=== PATIENT | male | born 1960 | race Caucasian/White ===

== ENCOUNTER 2022-12-23 09:44 | Outpatient (CLI) | payer BC, SELFPAY ==
--- NOTE | ~2022-12-23 | XR_ITS ---
XR chest 2V DATE: 12/23/2022 10:18 INDICATION: Cough lingering after flu for 4 weeks TECHNIQUE: PA and lateral views COMPARISON: 10/30/2016 2 view chest FINDINGS: No pulmonary infiltrate or consolidation, pleural effusion or pulmonary vascular congestion or pneumothorax. Heart size is within normal range. No hilar or mediastinal enlargement. Status post cholecystectomy. Degenerative spurring of the thoracic spine. IMPRESSION: No active cardiopulmonary disease or significant change since 10/30/2016 Reviewed, dictated and finalized at location A. [employer]
[2022-12-23 09:57] LABS: Basophils Absolute Auto 0.05 K/mm3 (0.00-0.10); Basophils Percent Auto 0.7 % (0.0-1.0); Eosinophils Absolute Auto 0.21 K/mm3 (0.02-0.50); Eosinophils Percent Auto 2.9 % (1.0-6.0); Hematocrit 45.2 % (40.0-54.0); Hemoglobin 15.2 g/dL (14.0-18.0); Immature Granulocyte Absolute 0.02 K/mm3 (0.00-0.00); Immature Granulocyte Percent A 0.3 % (0.0-0.0); Mean Corpuscular HGB Conc 33.6 g/dL (32.0-36.0); Mean Corpuscular Hemoglobin 29.4 pg (27.0-31.0); Mean Corpuscular Volume 87.4 fL (78.0-102.0); Mean Platelet Volume 10.4 fl (8.7-11.0); Monocytes Absolute Auto 0.63 K/mm3 (0.10-0.90); Monocytes Percent Auto 8.8 % (2.0-11.0); Neutrophils Absolute Auto 4.5 K/mm3 (1.7-7.2); Neutrophils Percent Auto 62.3 % (50.0-70.0); Platelet Count Result 253 K/mm3 (150-420); Red Blood Count 5.17 M/mm3 (4.70-6.10); Red Cell Distribution Width 14.4 % (11.6-14.4); White Blood Count 7.2 K/mm3 (4.8-10.8)
[2022-12-23 10:13] LABS: Alanine Aminotransferase 28 U/L (16-63); Albumin Level 3.8 g/dL (3.4-5.0); Alkaline Phosphatase 84 U/L (46-116); Anion Gap 4 mmol/L (8-16); Aspartate Amino Transferase 16 U/L (15-37); Bilirubin,Total 0.7 mg/dL (0.00-1.00); Blood Urea Nitrogen 13 mg/dL (7-18); Calcium 8.3 mg/dL (8.5-10.1); Carbon Dioxide 30 mmol/L (21-32); Chloride 101 mmol/L (98-108); Estimated Glomerular Filt Rate > 60; Glucose 100 mg/dL (70-99); Osmolality Calculated 280 mOsm/kg (285-295); Potassium 4.1 mmol/L (3.5-5.1); Sodium 135 mmol/L (136-145); Total Protein 7.8 g/dL (6.4-8.2)
== END 2022-12-23 09:45 | disposition home or self-care (01) ==
LOC: CHSLAB 09:47
PROVIDERS: PCP Internal Medicine; Visit Provider Internal Medicine
DX: R05.9 Cough, unspecified (principal)
CPT/HCPCS: 36415; 71046; 80053; 85025

== ENCOUNTER 2023-06-19 14:27 | Outpatient (CLI) | payer BC, SELFPAY ==
--- NOTE | ~2023-06-19 | XR_ITS ---
EXAM: XR thoracic spine 2V DATE: 06/19/2023 14:50 HISTORY: Lt. sided neck pain, upper back pain x2 months; worsening . COMPARISON: None available. FINDINGS: Mild thoracic scoliosis Vertebral body alignment intact. Vertebral body heights preserved. Multilevel moderate disc space narrowing and marginal osteophytosis. No traumatic malalignment or fr acture. Visualized lung parenchyma is clear. IMPRESSION: Multilevel moderate degenerative disc disease. Reviewed, dictated and finalized at location K.
--- NOTE | ~2023-06-19 | XR_ITS ---
EXAM: XR_CERV2-3V_CR DATE: 06/19/2023 14:50 HISTORY: Lt. sided neck pain, upper back pain . COMPARISON: None available. FINDINGS: Craniocervical association and atlantoaxial joint are aligned. Mild degenerative change at the atlantodental interval. No prevertebral soft tissue swelling. 3 mm retrolisthesis at C4-5. Verte bral body heights are maintained. Moderate disc space narrowing at C4-5, with mild disc space narrowi ng at the remaining levels with the exception of C2-3 which is normal. Mild multilevel facet sclerosi s IMPRESSION: Grade 1 retrolisthesis at C4-5, with moderate degenerative disc disease at the same level . Reviewed, dictated and finalized at location K. IMPRESSION: Grade 1 retrolisthesis at C4-5, with moderate degenerative disc dis ease at the same level.
== END 2023-06-19 14:28 | disposition home or self-care (01) ==
LOC: CHSIMG 14:29
PROVIDERS: PCP Internal Medicine; Visit Provider Nurse Practitioner Family
DX: M51.34 Other intervertebral disc degeneration, thoracic region (principal); M50.321 Other cervical disc degeneration at C4-C5 level
CPT/HCPCS: 72040; 72070

== ENCOUNTER 2023-07-09 16:47 | Outpatient (RCR) | payer BC, SELFPAY ==
--- NOTE | 2023-07-14 11:01 | PTOPEVAL1 ---
Assessment and note entered by Brittney Lenz, PT Evaluation Information Assessment Status Evaluation Diagnosis Neck and Upper Back Pain Subjective Information Golden Carrillo reports he has had pain in the left shoulder and neck that started about 3-4 months ago while golfing. He notes the pain is getting worse so he went to his doctor. He underwent x- rays and was told he had degenerative disc issues. He has also had intermittent left shoulder pain over the last several years. He is right hand dominant. He notes pain with turning his head ( mostly to the left), sitting for too long while performing computer work, driving, and lifting. He uses OTC Advil and Flexiril for pain control. Assessment PT Clinical Summary Golden Carrillo presents with left sided shoulder and neck pain that started about 3-4 months ago after playing golf. He has difficulty with turning his head, working at a computer for long periods, driving, reading, and lifting objects. 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 He objectively demonstrates tenderness in the left rhomboids and middle trapezius, decreased and painful cervical AROM, decreased scapular stability, impaired upper trunk posture, and positive special tests for cervical radiculopathy and shoulder impingement. He will benefit from skilled PT to address these limitations. Plan of Care Interventions Electrical Stimulation,Hot Pack/Cold Pack,Manual Therapy,Neuro Re-education,Therapeutic Activities, Therapeutic Exercise PT Services Indicated Yes Treatment Frequency and 2 times a week for 10 visits Duration These treatments will address the objective and functional deficits as defined above. The patient will be advanced safely and appropriately in order for the patient to progress towards his/her prior level of function. Additional exercises will be introduced and as well as a comprehensive home exercise program upon discharge, if needed, ?to ensure carryover of functional gains achieved in the clinic. This treatment plan has been reviewed and agreement upon by the patient.
--- NOTE | 2023-07-14 11:02 | OPREHPOC ---
Outpatient Therapy Plan of Care This is a Multidisciplinary Plan of Care that may contain components documented by all disciplines (PT, OT, and ST.) PT Problem 1 PT Problem #1 Knowledge Deficit PT Goal 1 Goal The patient will be independent in a home exercise program to continue after discharge from formal PT. Target Visit 10 PT Problem 2 PT Problem #2 Pain PT Goal 1 Goal The patient will report no greater than 2/10 neck and upper back pain with daily activities. Target Visit 10 PT Problem 3 PT Problem #3 Impaired Range of Motion PT Goal 1 Goal The patient will demonstrate 60 degrees of bilateral cervical rotation to improve safety with driving. Target Visit 10 PT Problem 4 PT Problem #4 Impaired Functional Mobil PT Goal 1 Goal The patient will have 25% or less self perceived disability with daily activities per the Neck Disability Index questionnaire. Target Visit 10
--- NOTE | 2023-08-13 17:37 | PTOPDC ---
Assessment and note entered by Brittney Lenz, PT Evaluation Information Assessment Status Discharge Diagnosis Neck and Upper Back Pain Onset 07/07/23 Subjective Information Golden Carrillo reports his neck pain has improved significantly and he is having more good days than bad. He does note mild limitations with turning his head while driving and lifting heavier weights . He does not have to lift heavy weights often though. He does not feel limited with ADLs now and feels he can continue independently with home exercises. Reported Pain Level Pain Score 0: Self Report Assessment PT Clinical Summary Golden Carrillo has completed 7 skilled PT visits for cervical and upper thoracic pain. He is reporting significantly less pain and improved mobility in his neck. He only has difficulty now with heavier lifting which he does not have to perform often and mildly with turning his head while driving. He objectively demonstrates improved cervical and left shoulder AROM in all planes, good upper body strength, and less palpable tenderness. He will be discharged from skilled PT to an independent [facility]. Plan of Care PT Services Indicated No
--- NOTE | 2023-08-13 17:37 | OPREHPOC ---
Outpatient Therapy Plan of Care This is a Multidisciplinary Plan of Care that may contain components documented by all disciplines (PT, OT, and ST.) PT Problem 1 PT Problem #1 Knowledge Deficit PT Goal 1 Goal The patient will be independent in a home exercise program to continue after discharge from formal PT. Target Visit 10 Progress Met PT Problem 2 PT Problem #2 Pain PT Goal 1 Goal The patient will report no greater than 2/10 neck and upper back pain with daily activities. Target Visit 10 Progress Met PT Problem 3 PT Problem #3 Impaired Range of Motion PT Goal 1 Goal The patient will demonstrate 60 degrees of bilateral cervical rotation to improve safety with driving. Target Visit 10 Progress Partially Met PT Problem 4 PT Problem #4 Impaired Functional Mobil PT Goal 1 Goal The patient will have 25% or less self perceived disability with daily activities per the Neck Disability Index questionnaire. Target Visit 10 Progress Met
== END 2023-08-13 16:39 | disposition home or self-care (01) ==
LOC: CHSPT 16:47
PROVIDERS: Visit Provider Nurse Practitioner Family
DX: M54.2 Cervicalgia (principal); M54.6 Pain in thoracic spine
CPT/HCPCS: 97014; 97110; 97140; 97150; 97161; 97750; G0283

== ENCOUNTER 2024-04-08 15:33 | Outpatient (CLI) | payer BC, SELFPAY ==
--- NOTE | ~2024-04-08 | XR_ITS ---
EXAM: XR_CERV2-3V_CR DATE: 04/08/2024 15:54 HISTORY: Lt. side cervical pain x2 years; worsening. NKI . COMPARISON: 06/19/2023. FINDINGS: Craniocervical association and atlantoaxial joint are aligned. Mild degenerative change at the atlantodental interval. No prevertebral soft tissue swelling. 3 mm retrolisthesis at C4-5. Verte bral body heights are maintained. Normal C2-3 disc. Moderate disc space narrowing at C4-5 with mild n arrowing at the remaining levels. Multilevel uncovertebral joint degenerative change. Multilevel mild facet sclerosis and hypertrophy. IMPRESSION: Grade 1 retrolisthesis at C4-5, with moderate degenerative change at the same level. Find ings are unchanged since the prior examination. Reviewed, dictated and finalized at location K. IMPRESSION: Grade 1 retrolisthesis at C4-5, with moderate degenerative change a t the same level. Findings are unchanged since the prior examination.
== END 2024-04-08 15:34 | disposition home or self-care (01) ==
LOC: CHSIMG 15:36
PROVIDERS: PCP Internal Medicine; Visit Provider Nurse Practitioner Family
DX: M54.2 Cervicalgia (principal); M43.12 Spondylolisthesis, cervical region
CPT/HCPCS: 72040